=== PATIENT | female | born 1965 | race Two or more races ===

== ENCOUNTER 2017-06-12 02:25 | Inpatient (IN) | payer OTHER ==
[~2017-06-12] VITALS: Ht 160 cm; Wt 107.0 kg
[2017-06-12] MEDS ORDERED: HYDROmorphone 1 MG/ML, 1ML ONE ×2 (02:41→05:40)
[2017-06-12] MEDS ORDERED: ONDANSETRON 2MG/ML, 2ML ONE ×3 (02:41→14:10)
[2017-06-12 02:46] LABS: HEMATOCRIT 48.5 % (34.6-47.8); HEMOGLOBIN 16.4 g/dL (11.7-16.4); WHITE BLOOD COUNT 12.1 x10^3/uL (3.4-10)
[2017-06-12 02:58] LABS: ASPARTATE AMINO TRANSFERASE 52 U/L (15-37); BLOOD UREA NITROGEN 11 mg/dL (7-18)
[2017-06-12] MEDS ORDERED: HYDROmorphone 1 MG/ML, 1ML IV ONE ×2 (03:00→05:30)
[2017-06-12] MEDS ORDERED: SODIUM CHLORIDE FLUSH 10ML SYR IVF ONE (03:00)
[2017-06-12] MEDS ORDERED: ONDANSETRON 2MG/ML, 2ML IVPush ONE (03:00)
[2017-06-12 03:03] LABS: IS PT STATUS REG ER OR PRE ER? YES
[2017-06-12] MEDS ORDERED: SODIUM CHLORIDE 0.9%, 500ML IVBOLUS ONE ×2 (03:30→04:00)
[2017-06-12] MEDS ORDERED: SODIUM CHLORIDE 0.9% 1,000ML IVBOLUS ONE ×2 (05:00→05:30)
[2017-06-12] MEDS ORDERED: CEFTRIAXONE PMX 1GM/50ML 50 ML ONE (05:08)
[2017-06-12] MEDS ORDERED: METRONIDAZOLE PMX 500MG/100ML 100 ML ONE (05:09)
[2017-06-12] MEDS ORDERED: OMNIPAQUE 350 MG/ML, 100ML BOTTLE ONE (05:15)
[2017-06-12] MEDS ORDERED: CEFTRIAXONE PMX 1GM/50ML 50 ML IV ONE (05:30)
[2017-06-12] MEDS ORDERED: INSULIN REGULAR 100 UNITS/ML, 3ML VIAL SQ-INSULIN ONE (05:30)
[2017-06-12] MEDS ORDERED: METRONIDAZOLE PMX 500MG/100ML 100 ML IV ONE (05:30)
[2017-06-12 06:21] VITALS: BP 117/118
[2017-06-12] MEDS: HYDROmorphone 2 MG/ML, 1ML IVPush PRN (07:57)
[2017-06-12] MEDS ORDERED: ONDANSETRON 2MG/ML, 2ML IVPush PRN (08:00)
[2017-06-12] MEDS: SODIUM CHLORIDE 0.9% 1,000 ML IV SCH ×3 (08:06→21:46)
[2017-06-12] MEDS: INSULIN REGULAR 100 UNITS/ML, 3ML VIAL SQ-INSULIN SCH ×3 (09:50→22:13)
[2017-06-12] MEDS ORDERED: morphine SULFATE 10 MG/ML, 1ML IV PRN (10:30)
[2017-06-12] MEDS: INSULIN DETEMIR 100 UNITS/ML, PEN SQ-INSULIN SCH (11:16)
[2017-06-12 12:29] LABS: DAU SCREEN DISCLAIMER
[2017-06-12 12:49] LABS: HCG UR OBC PASS
[2017-06-12] MEDS ORDERED: KETAMINE 10 MG/ML, 20ML ONE (13:47)
[2017-06-12] MEDS ORDERED: MIDAZOLAM 1 MG/ML, 2ML ONE (13:47)
[2017-06-12] MEDS ORDERED: FENTANYL PF 100 MCG/2ML ONE ×2 (13:47)
[2017-06-12] MEDS ORDERED: EPINEPHRINE 1 MG/ML, 1ML ONE (13:54)
[2017-06-12] MEDS ORDERED: BUPIVACAINE/PF 0.5% ONE (13:54)
[2017-06-12] MEDS ORDERED: NEOSTIGMINE 1 MG/ML, 10ML ONE (14:10)
[2017-06-12] MEDS ORDERED: SUCCINYLCHOLINE 20 MG/ML, 10ML ONE (14:10)
[2017-06-12] MEDS ORDERED: ROCURONIUM 10 MG/ML ONE (14:10)
[2017-06-12] MEDS ORDERED: GLYCOPYRROLATE 0.2MG/1ML, 5ML ONE (14:10)
[2017-06-12] MEDS ORDERED: PROPOFOL 10 MG/ML, 20ML ONE (14:10)
[2017-06-12] MEDS ORDERED: BUPIVACAINE/PF-EPI 0.5% 1:200K INFIL ONE (14:37)
[2017-06-12] MEDS ORDERED: OXYcodone 5 MG/5 ML ORAL.SOL UDC PO PRN (15:00)
[2017-06-12] MEDS ORDERED: MEPERIDINE/PF 25MG/0.5ML IVPush PRN (15:00)
[2017-06-12] MEDS ORDERED: FENTANYL PF 100 MCG/2ML IV PRN (15:00)
[2017-06-12] MEDS ORDERED: hydrALAzine 20 MG/ML, 1ML IV PRN (15:00)
[2017-06-12] MEDS ORDERED: LABETALOL 5MG/ML, 20ML IV PRN (15:00)
[2017-06-12] MEDS ORDERED: PROMETHAZINE 25 MG/ML, 1ML IV PRN (15:00)
[2017-06-12] MEDS ORDERED: HYDROmorphone 1 MG/ML, 1ML IV PRN (15:00)
[2017-06-12] MEDS ORDERED: NEOSPORIN OINT, 15GM ONE (15:14)
[2017-06-12] MEDS: METRONIDAZOLE PMX 500MG/100ML 100 ML IV SCH (16:57)
[2017-06-12 16:59] VITALS: BP 113/79
[2017-06-12] MEDS: OXYcodone/APAP 5/325MG TABLET PO PRN (19:19)
[2017-06-12] MEDS: LEVOFLOXACIN/PMX 750MG/150ML 150 ML IV SCH (19:52)
[2017-06-12 20:42] VITALS: BP 129/83
[2017-06-13 00:08] VITALS: BP 102/76
[2017-06-13] MEDS: METRONIDAZOLE PMX 500MG/100ML 100 ML IV SCH ×3 (00:41→16:55)
[2017-06-13] MEDS: OXYcodone/APAP 5/325MG TABLET PO PRN ×5 (01:38→23:35)
[2017-06-13 03:25] VITALS: BP 119/78
[2017-06-13] MEDS: SODIUM CHLORIDE 0.9% 1,000 ML IV SCH ×3 (04:55→18:16)
[2017-06-13] MEDS: CEFTRIAXONE PMX 2GM/50ML 50 ML IV SCH (05:16)
[2017-06-13 06:02] LABS: HEMATOCRIT 34.8 % (34.6-47.8); HEMOGLOBIN 11.8 g/dL (11.7-16.4); WHITE BLOOD COUNT 16.1 x10^3/uL (3.4-10)
[2017-06-13 06:06] LABS: BLOOD UREA NITROGEN 26 mg/dL (7-18)
[2017-06-13 06:11] LABS: ASPARTATE AMINO TRANSFERASE 163 U/L (15-37)
[2017-06-13 06:44] LABS: DIFF TOTAL CELLS COUNTED 100 CELL DIFF
[2017-06-13 06:45] LABS: VERIFY COUNTS? YES
[2017-06-13 07:00] VITALS: BP 122/81
[2017-06-13] MEDS: INSULIN DETEMIR 100 UNITS/ML, PEN SQ-INSULIN SCH (07:40)
[2017-06-13] MEDS: INSULIN REGULAR 100 UNITS/ML, 3ML VIAL SQ-INSULIN SCH ×4 (07:40→20:48)
[2017-06-13 15:55] VITALS: BP 123/85
[2017-06-13] MEDS ORDERED: POTASSIUM CHLORIDE 40 MEQ in SODIUM CHLORIDE 0.9% 500 ML IV ONE (19:00)
[2017-06-13] MEDS: LEVOFLOXACIN/PMX 750MG/150ML 150 ML IV SCH (19:43)
[2017-06-13 20:17] VITALS: BP 124/83
[2017-06-14] MEDS: SODIUM CHLORIDE 0.9% 1,000 ML IV SCH ×3 (00:42→15:12)
[2017-06-14] MEDS: METRONIDAZOLE PMX 500MG/100ML 100 ML IV SCH ×3 (00:43→16:57)
[2017-06-14 01:47] VITALS: BP 153/97
[2017-06-14] MEDS: OXYcodone/APAP 5/325MG TABLET PO PRN ×4 (03:46→19:27)
[2017-06-14] MEDS: CEFTRIAXONE PMX 2GM/50ML 50 ML IV SCH (04:51)
[2017-06-14 05:51] LABS: HEMATOCRIT 32.5 % (34.6-47.8); HEMOGLOBIN 11.2 g/dL (11.7-16.4)
[2017-06-14 06:07] LABS: BLOOD UREA NITROGEN 15 mg/dL (7-18)
[2017-06-14] MEDS: INSULIN REGULAR 100 UNITS/ML, 3ML VIAL SQ-INSULIN SCH ×4 (08:13→21:49)
[2017-06-14 08:29] VITALS: BP 149/90
[2017-06-14] MEDS: INSULIN DETEMIR 100 UNITS/ML, PEN SQ-INSULIN SCH (10:34)
[2017-06-14 13:53] VITALS: BP 156/94
[2017-06-14] MEDS ORDERED: MAGNESIUM SULFATE PMX 4GM/100M 100 ML IV ONE (18:30)
[2017-06-14] MEDS ORDERED: POTASSIUM PHOSPHATE 44 MEQ in SODIUM CHLORIDE 0.9% 500 ML IV ONE (18:30)
[2017-06-14] MEDS ORDERED: POTASSIUM CHLORIDE 20 MEQ TAB.ER.PRT PO ONE (18:30)
[2017-06-14] MEDS: LEVOFLOXACIN/PMX 750MG/150ML 150 ML IV SCH (19:16)
[2017-06-14 20:05] LABS: BLOOD UREA NITROGEN 10 mg/dL (7-18)
[2017-06-14 21:02] VITALS: BP 155/98
[2017-06-15] MEDS: DOCUSATE 100 MG CAPSULE PO PRN (00:17)
[2017-06-15] MEDS: METRONIDAZOLE PMX 500MG/100ML 100 ML IV SCH ×3 (00:17→16:35)
[2017-06-15] MEDS ORDERED: MAGNESIUM HYDROXIDE 8%, 30ML UDC PO PRN (00:30)
[2017-06-15] MEDS ORDERED: BISACODYL 10 MG SUPP PR PRN (00:30)
[2017-06-15] MEDS: OXYcodone/APAP 5/325MG TABLET PO PRN ×5 (01:47→23:02)
[2017-06-15 03:52] VITALS: BP 154/93
[2017-06-15] MEDS: CEFTRIAXONE PMX 2GM/50ML 50 ML IV SCH (05:12)
[2017-06-15 05:57] LABS: HEMATOCRIT 33.7 % (34.6-47.8); HEMOGLOBIN 11.5 g/dL (11.7-16.4); WHITE BLOOD COUNT 10.1 x10^3/uL (3.4-10)
[2017-06-15] MEDS: INSULIN REGULAR 100 UNITS/ML, 3ML VIAL SQ-INSULIN SCH ×4 (07:26→21:31)
[2017-06-15] MEDS: INSULIN DETEMIR 100 UNITS/ML, PEN SQ-INSULIN SCH (08:17)
[2017-06-15] MEDS: SODIUM CHLORIDE 0.9% 1,000 ML IV SCH ×3 (08:17→21:31)
[2017-06-15 08:28] VITALS: BP 185/101
[2017-06-15 09:29] VITALS: BP 173/116
[2017-06-15] MEDS: hydrALAzine 20 MG/ML, 1ML IV PRN (09:46)
[2017-06-15 13:15] VITALS: BP 155/93
[2017-06-15] MEDS ORDERED: FUROSEMIDE 40 MG/4 ML IV ONE (14:00)
[2017-06-15] MEDS ORDERED: POTASSIUM CHLORIDE 20 MEQ TAB.ER.PRT PO ONE (14:00)
[2017-06-15 18:29] VITALS: BP 149/86
[2017-06-15] MEDS: LEVOFLOXACIN/PMX 750MG/150ML 150 ML IV SCH (19:24)
[2017-06-16] MEDS: METRONIDAZOLE PMX 500MG/100ML 100 ML IV SCH ×3 (00:44→16:43)
[2017-06-16] MEDS: SODIUM CHLORIDE 0.9% 1,000 ML IV SCH (01:55)
[2017-06-16 02:49] VITALS: BP_SYST 158; BP_SYST 168; BP_DIAS 92
[2017-06-16] MEDS: hydrALAzine 20 MG/ML, 1ML IV PRN ×4 (03:03→20:22)
[2017-06-16] MEDS: OXYcodone/APAP 5/325MG TABLET PO PRN ×5 (03:03→20:34)
[2017-06-16 05:11] LABS: BLOOD UREA NITROGEN 5 mg/dL (7-18)
[2017-06-16 05:26] VITALS: BP 157/92
[2017-06-16] MEDS: CEFTRIAXONE PMX 2GM/50ML 50 ML IV SCH (05:28)
[2017-06-16] MEDS: INSULIN REGULAR 100 UNITS/ML, 3ML VIAL SQ-INSULIN SCH ×4 (06:50→20:38)
[2017-06-16 06:57] VITALS: BP 168/105
[2017-06-16 08:23] VITALS: BP 165/97
[2017-06-16] MEDS: INSULIN DETEMIR 100 UNITS/ML, PEN SQ-INSULIN SCH (08:24)
[2017-06-16 13:41] VITALS: BP 164/105
[2017-06-16] MEDS: POTASSIUM CHLORIDE 20 MEQ TAB.ER.PRT PO SCH (16:43)
[2017-06-16 18:51] VITALS: BP 167/97
[2017-06-16] MEDS: LEVOFLOXACIN/PMX 750MG/150ML 150 ML IV SCH (20:23)
[2017-06-17] MEDS: OXYcodone/APAP 5/325MG TABLET PO PRN ×5 (00:13→20:57)
[2017-06-17] MEDS: METRONIDAZOLE PMX 500MG/100ML 100 ML IV SCH ×3 (00:14→16:25)
[2017-06-17 00:25] VITALS: BP 157/85
[2017-06-17] MEDS: CEFTRIAXONE PMX 2GM/50ML 50 ML IV SCH (05:05)
[2017-06-17] MEDS: INSULIN REGULAR 100 UNITS/ML, 3ML VIAL SQ-INSULIN SCH ×4 (06:29→21:11)
[2017-06-17 07:55] VITALS: BP 197/112
[2017-06-17] MEDS: hydrALAzine 20 MG/ML, 1ML IV PRN (07:55)
[2017-06-17] MEDS: POTASSIUM CHLORIDE 20 MEQ TAB.ER.PRT PO SCH (07:56)
[2017-06-17] MEDS: INSULIN DETEMIR 100 UNITS/ML, PEN SQ-INSULIN SCH (07:56)
[2017-06-17] MEDS: HYDROmorphone 2 MG/ML, 1ML IVPush PRN (12:40)
[2017-06-17 13:19] VITALS: BP 175/104
[2017-06-17] MEDS: METOPROLOL TARTRATE 50 MG TABLET PO SCH (16:25)
[2017-06-17 18:34] VITALS: BP 157/95
[2017-06-17] MEDS: LISINOPRIL 20 MG TABLET PO SCH (20:55)
[2017-06-17] MEDS: DOCUSATE 100 MG CAPSULE PO PRN (21:10)
[2017-06-18 01:09] VITALS: BP 154/96
[2017-06-18] MEDS: OXYcodone/APAP 5/325MG TABLET PO PRN ×6 (01:09→22:18)
[2017-06-18] MEDS: METOPROLOL TARTRATE 50 MG TABLET PO SCH ×2 (05:06→17:25)
[2017-06-18] MEDS: CEFTRIAXONE PMX 2GM/50ML 50 ML IV SCH (05:06)
[2017-06-18 05:47] LABS: BLOOD UREA NITROGEN 6 mg/dL (7-18)
[2017-06-18 07:54] VITALS: BP 161/98
[2017-06-18] MEDS: LISINOPRIL 20 MG TABLET PO SCH ×2 (08:26→22:18)
[2017-06-18] MEDS: INSULIN REGULAR 100 UNITS/ML, 3ML VIAL SQ-INSULIN SCH ×4 (08:27→22:19)
[2017-06-18] MEDS: INSULIN DETEMIR 100 UNITS/ML, PEN SQ-INSULIN SCH (08:27)
[2017-06-18 15:20] VITALS: BP_SYST 174; BP_SYST 186; BP_DIAS 106
[2017-06-18 20:02] VITALS: BP 178/101
[2017-06-19 01:52] VITALS: BP 176/99
[2017-06-19] MEDS: OXYcodone/APAP 5/325MG TABLET PO PRN ×5 (02:36→20:27)
[2017-06-19] MEDS: CEFTRIAXONE PMX 2GM/50ML 50 ML IV SCH (05:17)
[2017-06-19] MEDS: METOPROLOL TARTRATE 50 MG TABLET PO SCH ×2 (06:26→16:43)
[2017-06-19 08:00] VITALS: BP_SYST 187; BP_SYST 192; BP_DIAS 101; BP_DIAS 99
[2017-06-19] MEDS: LISINOPRIL 20 MG TABLET PO SCH ×2 (08:15→20:27)
[2017-06-19] MEDS: INSULIN DETEMIR 100 UNITS/ML, PEN SQ-INSULIN SCH (08:16)
[2017-06-19] MEDS: INSULIN REGULAR 100 UNITS/ML, 3ML VIAL SQ-INSULIN SCH ×4 (08:16→20:26)
[2017-06-19 15:53] VITALS: BP 166/116
[2017-06-19 18:20] VITALS: BP 150/96
[2017-06-20] MEDS: OXYcodone/APAP 5/325MG TABLET PO PRN ×5 (00:27→21:06)
[2017-06-20 04:15] VITALS: BP 156/90
[2017-06-20] MEDS: CEFTRIAXONE PMX 2GM/50ML 50 ML IV SCH (04:50)
[2017-06-20] MEDS: METOPROLOL TARTRATE 50 MG TABLET PO SCH ×2 (06:24→17:03)
[2017-06-20 08:06] VITALS: BP 173/113
[2017-06-20] MEDS: INSULIN REGULAR 100 UNITS/ML, 3ML VIAL SQ-INSULIN SCH ×4 (08:37→21:07)
[2017-06-20] MEDS: INSULIN DETEMIR 100 UNITS/ML, PEN SQ-INSULIN SCH ×2 (08:38→21:12)
[2017-06-20] MEDS: LISINOPRIL 20 MG TABLET PO SCH ×2 (08:38→21:06)
[2017-06-20] MEDS: AMLODIPINE 5 MG TABLET PO SCH ×2 (10:22→21:05)
[2017-06-20 14:00] VITALS: BP 153/95
[2017-06-20 20:17] VITALS: BP 171/98
[2017-06-21] MEDS: OXYcodone/APAP 5/325MG TABLET PO PRN ×4 (01:29→21:38)
[2017-06-21 05:01] VITALS: BP 172/82
[2017-06-21] MEDS: CEFTRIAXONE PMX 2GM/50ML 50 ML IV SCH (05:20)
[2017-06-21] MEDS: METOPROLOL TARTRATE 50 MG TABLET PO SCH ×2 (05:20→17:14)
[2017-06-21] MEDS: INSULIN REGULAR 100 UNITS/ML, 3ML VIAL SQ-INSULIN SCH ×4 (07:00→21:34)
[2017-06-21 08:02] VITALS: BP 161/97
[2017-06-21] MEDS: LISINOPRIL 20 MG TABLET PO SCH ×2 (08:04→21:35)
[2017-06-21] MEDS: INSULIN DETEMIR 100 UNITS/ML, PEN SQ-INSULIN SCH ×2 (08:04→21:35)
[2017-06-21] MEDS: AMLODIPINE 5 MG TABLET PO SCH ×2 (08:04→21:35)
[2017-06-21 13:50] VITALS: BP 173/94
[2017-06-21 18:39] VITALS: BP 153/97
[2017-06-22 01:14] VITALS: BP 136/84
[2017-06-22] MEDS: CEFTRIAXONE PMX 2GM/50ML 50 ML IV SCH (05:36)
[2017-06-22] MEDS: METOPROLOL TARTRATE 50 MG TABLET PO SCH ×2 (06:27→18:02)
[2017-06-22 06:45] VITALS: BP 156/90
[2017-06-22] MEDS: INSULIN REGULAR 100 UNITS/ML, 3ML VIAL SQ-INSULIN SCH ×4 (07:00→22:34)
[2017-06-22] MEDS: HYDROCHLOROTHIAZIDE 25 MG TABLET PO SCH (08:06)
[2017-06-22] MEDS: POTASSIUM CHLORIDE 20 MEQ PACKET PO SCH (08:06)
[2017-06-22] MEDS: OXYcodone/APAP 5/325MG TABLET PO PRN ×3 (08:06→22:29)
[2017-06-22] MEDS: LISINOPRIL 20 MG TABLET PO SCH ×2 (08:07→22:02)
[2017-06-22] MEDS: AMLODIPINE 5 MG TABLET PO SCH ×2 (08:07→22:01)
[2017-06-22] MEDS: INSULIN DETEMIR 100 UNITS/ML, PEN SQ-INSULIN SCH ×2 (08:08→22:33)
[2017-06-22 13:10] VITALS: BP 149/91
[2017-06-22 18:41] VITALS: BP 150/89
[2017-06-23 02:57] VITALS: BP 164/83
[2017-06-23] MEDS: CEFTRIAXONE PMX 2GM/50ML 50 ML IV SCH (06:10)
[2017-06-23] MEDS: METOPROLOL TARTRATE 50 MG TABLET PO SCH ×2 (06:10→18:13)
[2017-06-23 06:55] VITALS: BP 155/97
[2017-06-23] MEDS: INSULIN REGULAR 100 UNITS/ML, 3ML VIAL SQ-INSULIN SCH ×4 (07:00→22:05)
[2017-06-23] MEDS: OXYcodone/APAP 5/325MG TABLET PO PRN ×3 (07:26→22:06)
[2017-06-23] MEDS: LISINOPRIL 20 MG TABLET PO SCH ×2 (09:56→22:04)
[2017-06-23] MEDS: AMLODIPINE 5 MG TABLET PO SCH ×2 (09:56→22:04)
[2017-06-23] MEDS: POTASSIUM CHLORIDE 20 MEQ PACKET PO SCH (09:57)
[2017-06-23] MEDS: HYDROCHLOROTHIAZIDE 25 MG TABLET PO SCH (09:57)
[2017-06-23] MEDS: INSULIN DETEMIR 100 UNITS/ML, PEN SQ-INSULIN SCH ×2 (09:58→22:06)
[2017-06-23 12:35] VITALS: BP 137/82
[2017-06-23 19:38] VITALS: BP 157/99
[2017-06-24 00:22] VITALS: BP 160/96
[2017-06-24 06:00] LABS: HEMATOCRIT 35.2 % (34.6-47.8); HEMOGLOBIN 11.9 g/dL (11.7-16.4); WHITE BLOOD COUNT 8.6 x10^3/uL (3.4-10)
[2017-06-24] MEDS: CEFTRIAXONE PMX 2GM/50ML 50 ML IV SCH (06:09)
[2017-06-24] MEDS: METOPROLOL TARTRATE 50 MG TABLET PO SCH ×2 (06:09→17:57)
[2017-06-24] MEDS: OXYcodone/APAP 5/325MG TABLET PO PRN ×4 (06:17→22:14)
[2017-06-24 06:39] LABS: BLOOD UREA NITROGEN 13 mg/dL (7-18)
[2017-06-24 07:17] VITALS: BP 158/97
[2017-06-24] MEDS: INSULIN REGULAR 100 UNITS/ML, 3ML VIAL SQ-INSULIN SCH ×4 (07:30→22:13)
[2017-06-24] MEDS: LISINOPRIL 20 MG TABLET PO SCH ×2 (09:02→21:27)
[2017-06-24] MEDS: HYDROCHLOROTHIAZIDE 25 MG TABLET PO SCH (09:02)
[2017-06-24] MEDS: AMLODIPINE 5 MG TABLET PO SCH ×2 (09:02→21:27)
[2017-06-24] MEDS: POTASSIUM CHLORIDE 20 MEQ PACKET PO SCH (09:03)
[2017-06-24] MEDS: INSULIN DETEMIR 100 UNITS/ML, PEN SQ-INSULIN SCH ×2 (09:04→22:14)
[2017-06-24 13:47] VITALS: BP 138/87
[2017-06-24 16:20] VITALS: BP 142/92
[2017-06-24 21:09] VITALS: BP 128/80
[2017-06-25 02:18] VITALS: BP 154/83
[2017-06-25] MEDS: OXYcodone/APAP 5/325MG TABLET PO PRN ×4 (02:38→21:38)
[2017-06-25 05:59] LABS: HEMATOCRIT 38.4 % (34.6-47.8); HEMOGLOBIN 12.9 g/dL (11.7-16.4); WHITE BLOOD COUNT 7.9 x10^3/uL (3.4-10)
[2017-06-25 06:19] LABS: ASPARTATE AMINO TRANSFERASE 27 U/L (15-37); BLOOD UREA NITROGEN 17 mg/dL (7-18)
[2017-06-25] MEDS: CEFTRIAXONE PMX 2GM/50ML 50 ML IV SCH (06:52)
[2017-06-25 06:59] VITALS: BP 125/78
[2017-06-25] MEDS: METOPROLOL TARTRATE 50 MG TABLET PO SCH ×2 (06:59→17:21)
[2017-06-25 07:41] VITALS: BP 111/72
[2017-06-25] MEDS: POTASSIUM CHLORIDE 20 MEQ PACKET PO SCH (07:59)
[2017-06-25] MEDS: LISINOPRIL 20 MG TABLET PO SCH ×2 (07:59→21:38)
[2017-06-25] MEDS: AMLODIPINE 5 MG TABLET PO SCH ×2 (07:59→21:37)
[2017-06-25] MEDS: HYDROCHLOROTHIAZIDE 25 MG TABLET PO SCH (08:01)
[2017-06-25] MEDS: INSULIN REGULAR 100 UNITS/ML, 3ML VIAL SQ-INSULIN SCH ×4 (08:01→21:45)
[2017-06-25] MEDS: INSULIN DETEMIR 100 UNITS/ML, PEN SQ-INSULIN SCH ×2 (08:02→21:45)
[2017-06-25 13:21] VITALS: BP 135/79
[2017-06-25 19:02] VITALS: BP 127/78
[2017-06-26 03:23] VITALS: BP 143/88
[2017-06-26] MEDS: OXYcodone/APAP 5/325MG TABLET PO PRN ×4 (04:12→21:04)
[2017-06-26 05:33] LABS: HEMATOCRIT 35.5 % (34.6-47.8); HEMOGLOBIN 11.9 g/dL (11.7-16.4); WHITE BLOOD COUNT 6.6 x10^3/uL (3.4-10)
[2017-06-26 05:41] LABS: ASPARTATE AMINO TRANSFERASE 24 U/L (15-37); BLOOD UREA NITROGEN 17 mg/dL (7-18)
[2017-06-26] MEDS: CEFTRIAXONE PMX 2GM/50ML 50 ML IV SCH (06:10)
[2017-06-26] MEDS: METOPROLOL TARTRATE 50 MG TABLET PO SCH ×2 (06:10→16:34)
[2017-06-26 07:35] VITALS: BP 138/80
[2017-06-26] MEDS: POTASSIUM CHLORIDE 20 MEQ PACKET PO SCH (07:37)
[2017-06-26] MEDS: INSULIN REGULAR 100 UNITS/ML, 3ML VIAL SQ-INSULIN SCH ×4 (07:37→21:08)
[2017-06-26] MEDS: INSULIN DETEMIR 100 UNITS/ML, PEN SQ-INSULIN SCH ×2 (07:38→21:09)
[2017-06-26] MEDS: LISINOPRIL 20 MG TABLET PO SCH ×2 (07:38→21:05)
[2017-06-26] MEDS: HYDROCHLOROTHIAZIDE 25 MG TABLET PO SCH (07:38)
[2017-06-26] MEDS: AMLODIPINE 5 MG TABLET PO SCH ×2 (07:38→21:05)
[2017-06-26 07:51] VITALS: BP 121/79
[2017-06-26 13:29] VITALS: BP 116/65
[2017-06-26 16:33] VITALS: BP 142/83
[2017-06-26 20:46] VITALS: BP 110/73
[2017-06-27 02:55] VITALS: BP 131/82
[2017-06-27 05:21] LABS: HEMATOCRIT 36.7 % (34.6-47.8); HEMOGLOBIN 12.3 g/dL (11.7-16.4); WHITE BLOOD COUNT 6.8 x10^3/uL (3.4-10)
[2017-06-27 05:32] LABS: ASPARTATE AMINO TRANSFERASE 14 U/L (15-37); BLOOD UREA NITROGEN 16 mg/dL (7-18)
[2017-06-27] MEDS: OXYcodone/APAP 5/325MG TABLET PO PRN ×3 (05:46→21:50)
[2017-06-27] MEDS: METOPROLOL TARTRATE 50 MG TABLET PO SCH ×2 (05:46→16:51)
[2017-06-27] MEDS: CEFTRIAXONE PMX 2GM/50ML 50 ML IV SCH (05:46)
[2017-06-27 07:48] VITALS: BP 122/82
[2017-06-27] MEDS: INSULIN REGULAR 100 UNITS/ML, 3ML VIAL SQ-INSULIN SCH ×4 (08:50→20:43)
[2017-06-27] MEDS: POTASSIUM CHLORIDE 20 MEQ PACKET PO SCH (08:50)
[2017-06-27] MEDS: HYDROCHLOROTHIAZIDE 25 MG TABLET PO SCH (08:51)
[2017-06-27] MEDS: AMLODIPINE 5 MG TABLET PO SCH ×2 (08:51→20:41)
[2017-06-27] MEDS: LISINOPRIL 20 MG TABLET PO SCH ×2 (08:52→20:41)
[2017-06-27] MEDS: INSULIN DETEMIR 100 UNITS/ML, PEN SQ-INSULIN SCH ×2 (08:53→20:42)
[2017-06-27 13:21] VITALS: BP 113/69
[2017-06-27 17:03] VITALS: BP 112/78
[2017-06-27 20:00] VITALS: BP 141/85
[2017-06-28 02:00] VITALS: BP 137/77
[2017-06-28 05:59] LABS: HEMATOCRIT 37.5 % (34.6-47.8); HEMOGLOBIN 12.5 g/dL (11.7-16.4); WHITE BLOOD COUNT 6.4 x10^3/uL (3.4-10)
[2017-06-28] MEDS: OXYcodone/APAP 5/325MG TABLET PO PRN (06:09)
[2017-06-28] MEDS: CEFTRIAXONE PMX 2GM/50ML 50 ML IV SCH (06:09)
[2017-06-28] MEDS ORDERED: INSU100I28 SQ-INSULIN (06:11)
[2017-06-28] MEDS ORDERED: LISI-170 PO (06:11)
[2017-06-28] MEDS ORDERED: METO50TA82 PO (06:11)
[2017-06-28] MEDS ORDERED: AMLO5TAB2 PO (06:11)
[2017-06-28] MEDS ORDERED: HYDR-3343 PO (06:11)
[2017-06-28] MEDS ORDERED: HYDR25TA6 PO (06:11)
[2017-06-28] MEDS: METOPROLOL TARTRATE 50 MG TABLET PO SCH (06:32)
[2017-06-28 06:36] LABS: BLOOD UREA NITROGEN 13 mg/dL (7-18)
[2017-06-28 06:37] LABS: ASPARTATE AMINO TRANSFERASE 16 U/L (15-37)
[2017-06-28 07:02] VITALS: BP 149/90
[2017-06-28] MEDS: INSULIN REGULAR 100 UNITS/ML, 3ML VIAL SQ-INSULIN SCH (07:59)
[2017-06-28] MEDS: LISINOPRIL 20 MG TABLET PO SCH (08:00)
[2017-06-28] MEDS: POTASSIUM CHLORIDE 20 MEQ PACKET PO SCH (08:00)
[2017-06-28] MEDS: INSULIN DETEMIR 100 UNITS/ML, PEN SQ-INSULIN SCH (08:00)
[2017-06-28] MEDS: AMLODIPINE 5 MG TABLET PO SCH (08:00)
[2017-06-28] MEDS: HYDROCHLOROTHIAZIDE 25 MG TABLET PO SCH (08:00)
[2017-06-28] MEDS ORDERED: METF500T PO (08:01)
[2017-06-28] MEDS ORDERED: PNEUMOCOCCAL 23 VACCINE IM-VACC ONE (09:30)
[2017-06-28] MEDS ORDERED: INSU100C5 SQ-INSULIN (10:52)
== END 2017-06-28 11:10 | disposition home or self-care (01) | DRG 853 ==
LOC: EDBD 02:25 → ED 03:40 → EDIP 05:22 → 4NOR 06:19 → 4EST 06-27 17:01 → DCLOUNGE 06-28 10:42
PROVIDERS: ADMIT Internal Medicine; ATTEND Internal Medicine
PROC: 0FT44ZZ Resection of Gallbladder, Percutaneous Endoscopic Approach (ICD-10-PCS; principal; 2017-06-12 14:00)
DX: A41.9 Sepsis, unspecified organism (principal); N17.0 Acute kidney failure with tubular necrosis; E11.00 Type 2 diabetes mellitus with hyperosmolarity without nonketotic hyperglycemic-hyperosmolar coma (NKHHC); E87.2 Acidosis; E43 Unspecified severe protein-calorie malnutrition; N39.0 Urinary tract infection, site not specified; K80.00 Calculus of gallbladder with acute cholecystitis without obstruction; Z68.41 Body mass index [BMI] 40.0-44.9, adult; R65.20 Severe sepsis without septic shock; D75.89 Other specified diseases of blood and blood-forming organs; E11.65 Type 2 diabetes mellitus with hyperglycemia; E66.01 Morbid (severe) obesity due to excess calories; E83.39 Other disorders of phosphorus metabolism; E83.42 Hypomagnesemia; E87.6 Hypokalemia; I10 Essential (primary) hypertension; F15.10 Other stimulant abuse, uncomplicated; K76.0 Fatty (change of) liver, not elsewhere classified; D21.9 Benign neoplasm of connective and other soft tissue, unspecified; Z79.84 Long term (current) use of oral hypoglycemic drugs; Z79.899 Other long term (current) drug therapy; Z82.49 Family history of ischemic heart disease and other diseases of the circulatory system; Z91.19 Patient's noncompliance with other medical treatment and regimen
CPT/HCPCS: 36415; 71010; 74174; 80047; 80048; 80053; 80307; 81001; 81025; 82010; 82800; 82962; 83036; 83605; 83690; 83735; 83880; 84100; 84439; 84443; 84484; 85025; 85610; 85730; 87040; 87077; 87086; 87186; 88304; 90732; 93005; 93306; 93975; 96361; 96365; 96372; 96375; 96376; C1729; J0171; J0696; J1170; J1815; J1940; J1956; J2250; J2405; J2704; J2710; J3010; J3480; J3490; Q9967; G0479; J0330; J0360; J3475; J7030; J7040

== ENCOUNTER 2020-11-05 22:44 | Emergency (ER) | payer BC ==
[~2020-11-05] VITALS: Ht 160 cm; Wt 106.2 kg
[~2020-11-05 22:44] MED LIST: AMLO-150 PO; HYDR-3343 PO; HYDR25TA6 PO; INSU100C5 SQ-INSULIN; INSU100I28 SQ-INSULIN; LISI-170 PO; METF500T PO; METO50TA82 PO
[2020-11-05] MEDS ORDERED: GABA100C PO (22:59)
--- NOTE | 2020-11-05 22:59 | NUR ---
PT CAME INTO ED THIS EVENING FOR C/O TOOTH PAIN ON THE RIGHT UPPER SIDE. PT DENIES HAVING A REGULAR DENTIST, DENIES SWELLING OR VISION INVOLVEMENT. PAIN IS 9/10 AT HOME APPLIED SOME ORAL GEL. PT DENIES HOFF DESPITE INCREASED BP. PT RESTING ON JAQUAN HERNANDEZ, PLACED ON SPO2/BP MONITORING. WCTM
[2020-11-05] MEDS ORDERED: LABETALOL 5MG/ML, 20ML ONE (23:20)
[2020-11-05 23:25] LABS: BASOPHILS % (AUTO) 0 % (0-1); EOSINOPHILS % (AUTO) 1 % (1-7); LYMPHOCYTES % (AUTO) 12 % (22-44); MEAN CORPUSCULAR HEMOGLOBIN 28.7 pg (27.0-34.8); MEAN CORPUSCULAR HGB CONC 34.2 g/dL (32.4-35.8); MEAN PLATELET VOLUME 8.5 fL (7.4-10.4); MONOCYTES % (AUTO) 6 % (2-9); NEUTROPHILS % (AUTO) 81 % (42-75); PLATELET COUNT 280 x10^3/uL (130-400); RED BLOOD COUNT 4.99 x10^6/uL (3.82-5.3); RED CELL DISTRIBUTION WIDTH 13.3 % (9.6-15.2)
[2020-11-05 23:29] LABS: MD NO
[2020-11-05] MEDS ORDERED: LABETALOL 5MG/ML, 20ML IVPush ONE (23:30)
[2020-11-05] MEDS ORDERED: SODIUM CHLORIDE 0.9% 1,000ML IVBOLUS ONE (23:30)
[2020-11-05] MEDS ORDERED: SODIUM CHLORIDE FLUSH 10ML SYR IVF ONE (23:30)
[2020-11-05 23:36] LABS: ALBUMIN 3.2 g/dL (3.4-5.0); ANION GAP 6 mmol/L (5-15); CALCIUM 8.7 mg/dL (8.5-10.1); CHLORIDE 104 mmol/L (98-107); CREATININE 0.95 mg/dL (0.55-1.02)
--- NOTE | 2020-11-06 00:17 | NUR ---
PT AMBULATED TO RESTROOM WITH A SMOOTH AND STEADY GAIT, NAD, BACK TO [facility], BED IN [facility], RAILS ENGAGED, CALL LIGHT ON LAP. STATES TOOTH PAIN HAD DECREASED BUT IS NOW BACK AND WORSE. EPR AWARE, AWAITING ORDERS, WCTM.
[2020-11-06] MEDS ORDERED: KETOROLAC 30 MG/1 ML IVPush ONE (00:30)
[2020-11-06] MEDS ORDERED: hydrALAzine 20 MG/ML, 1ML IV ONE (00:30)
[2020-11-06] MEDS ORDERED: hydrALAzine 20 MG/ML, 1ML ONE (00:30)
[2020-11-06] MEDS ORDERED: INSULIN SINGLE DOSE, ER SQ-INSULIN ONE (00:30)
[2020-11-06] MEDS ORDERED: INSULIN SINGLE DOSE, ER ONE (00:31)
[2020-11-06] MEDS ORDERED: KETOROLAC 30 MG/1 ML ONE (00:31)
--- NOTE | 2020-11-06 00:55 | NUR ---
PT MEDICATED PER MAR, NAD, RESTING ON GURNEY, DENIES ADDITIONAL QUESTIONS OR NEEDS, SLIGHT DECREASE IN BP. BED IN LOWEST, CALL LIGHT ON LAP, WCTM.
--- NOTE | 2020-11-06 01:31 | NUR ---
Patient given discharge instructions and they have confirmed that they understand the instructions. Patient ambulatory with steady gait. NAD, DENIES ADDITIONAL QUESTIONS OR NEEDS, STATES SHE WILL FOLLOW UP WITH PCP FOR MEDS AND DENTAL FOR TOOTH. STATES PAIN IS SIGNIFICANTLY DECREASED, NO PERSONAL BELONGINGS LEFT IN ROOM AFTER DC.
[2020-11-06 01:32] VITALS: BP 177/98
== END 2020-11-06 01:34 | disposition home or self-care (01) ==
LOC: ED 11-06 01:10
DX: K08.89 Other specified disorders of teeth and supporting structures (principal); E11.65 Type 2 diabetes mellitus with hyperglycemia; I10 Essential (primary) hypertension; Z91.14 Patient's other noncompliance with medication regimen
CPT/HCPCS: 36415; 80048; 82040; 82962; 85025; 96361; 96372; 96374; 96375; 99285; J0360; J1815; J1885; J7030

== ENCOUNTER 2021-06-23 00:52 | Inpatient (IN) | payer BC, OTHER ==
[~2021-06-23] VITALS: Ht 160 cm; Wt 106.3 kg
[~2021-06-23 00:52] MED LIST changes: +GABA100C PO
[2021-06-23] MEDS ORDERED: LABETALOL 5MG/ML, 20ML ONE (01:26)
[2021-06-23] MEDS ORDERED: SODIUM CHLORIDE FLUSH 10ML SYR IVF ONE (01:30)
[2021-06-23] MEDS: LABETALOL 5MG/ML, 20ML IVPush PRN ×2 (01:31→12:06)
--- NOTE | 2021-06-23 01:38 | NUR ---
PT STATES MONDAY MORNING WHEN SHE WOKE UP, WAS HAVING TROUBLE WALKING RIGHT (PT AMBULATORY INTO [facility]) STATES SHE FEELS LIKE SHE IS DRAGGING HER R LEG. PT STATES SHE IS SLURRING HER WORDS, ONSET SAME TIME. PT DENIES HEADACHE,DIZZINESS. DENIES ANY CVA HX. LAST KNOWN WELL Monday. - SLURRED SPEECH NO OTHER NEURO DEFICITS.
[2021-06-23 01:57] LABS: BASOPHILS % (AUTO) 1 % (0-1); EOSINOPHILS % (AUTO) 1 % (1-7); LYMPHOCYTES % (AUTO) 13 % (22-44); MEAN CORPUSCULAR HEMOGLOBIN 29.1 pg (27.0-34.8); MEAN CORPUSCULAR HGB CONC 33.8 g/dL (32.4-35.8); MEAN PLATELET VOLUME 9.3 fL (7.4-10.4); MONOCYTES % (AUTO) 5 % (2-9); NEUTROPHILS % (AUTO) 81 % (42-75); PLATELET COUNT 311 x10^3/uL (130-400); RED BLOOD COUNT 5.62 x10^6/uL (3.82-5.3)
[2021-06-23 02:02] LABS: ANION GAP 8 mmol/L (5-15); CALCIUM 8.6 mg/dL (8.5-10.1); CHLORIDE 102 mmol/L (98-107)
[2021-06-23 02:02] LABS: INTERNATIONAL NORMALIZED RATIO 0.99 (0.93-1.1); PROTHROMBIN TIME 10.6 Seconds (9.6-11.5)
[2021-06-23 02:05] LABS: ALANINE AMINOTRANSFERASE 51 U/L (12-78); ALKALINE PHOSPHATASE 160 U/L (45-117); BILIRUBIN,TOTAL 0.3 mg/dL (0.2-1.0); CREATININE 1.15 mg/dL (0.55-1.02); TOTAL PROTEIN 7.9 g/dL (6.4-8.2)
--- NOTE | 2021-06-23 02:25 | NUR ---
pt states feels better in nad
[2021-06-23] MEDS ORDERED: INSULIN REGULAR 100 UNITS/ML, 3ML VIAL IVPush ONE (02:30)
[2021-06-23] MEDS ORDERED: DEXAMETHASONE 4 MG/ML, 1ML IVPush ONE (02:30)
[2021-06-23] MEDS ORDERED: LEVETIRACETAM 1,000 MG in SODIUM CHLORIDE 0.9% 100 ML IV ONE (02:30)
[2021-06-23] MEDS ORDERED: SODIUM CHLORIDE 0.9% 1,000 ML IV ONE (02:30)
[2021-06-23] MEDS ORDERED: DEXAMETHASONE 4 MG/ML, 5ML ONE (02:40)
[2021-06-23] MEDS ORDERED: INSULIN SINGLE DOSE, ER ONE (02:41)
[2021-06-23] MEDS ORDERED: DEXTROSE 50%, 50ML SYRINGE IVPush PRN (03:00)
[2021-06-23] MEDS ORDERED: INSULIN LISPRO 100 UNITS/ML, PEN SQ-INSULIN SCH (03:00)
[2021-06-23] MEDS ORDERED: ACETAMINOPHEN 325 MG TABLET PO PRN (03:00)
[2021-06-23] MEDS ORDERED: GLUCAGON 1 MG IM PRN (03:00)
[2021-06-23] MEDS ORDERED: LABETALOL 5MG/ML, 20ML IV PRN (03:00)
[2021-06-23] MEDS ORDERED: OXYcodone IR 5MG TABLET PO PRN (03:00)
[2021-06-23] MEDS ORDERED: ONDANSETRON 2MG/ML, 2ML IVPush PRN (03:00)
[2021-06-23] MEDS ORDERED: GUAIFENESIN/DM 200-20MG, 10ML UDC PO PRN (03:00)
[2021-06-23] MEDS ORDERED: POLYETHYLENE GLYCOL 17 GM PACKET PO PRN (03:00)
[2021-06-23] MEDS ORDERED: morphine SULFATE 10 MG/ML, 1ML IVPush PRN (03:00)
[2021-06-23] MEDS ORDERED: DIPHENHYDRAMINE 25 MG CAPSULE PO PRN (03:00)
[2021-06-23] MEDS ORDERED: DEXTROSE 4 GM TAB.CHEW PO PRN (03:00)
--- NOTE | 2021-06-23 03:18 | NUR ---
. .PT CCU ADMIT AWAITING BED D/T HEAD BLEED. MEDS GIVEN PER MAR PT IN NAD
--- NOTE | 2021-06-23 03:57 | NUR ---
Kate -daughter [phone]
--- NOTE | 2021-06-23 04:15 | NUR ---
pt moved to hospital bed for comfort
--- NOTE | 2021-06-23 05:00 | NUR ---
pt void in bedpan
[2021-06-23 05:25] LABS: BASOPHILS % (AUTO) 1 % (0-1); EOSINOPHILS % (AUTO) 0 % (1-7); LYMPHOCYTES % (AUTO) 9 % (22-44); MEAN CORPUSCULAR HEMOGLOBIN 28.7 pg (27.0-34.8); MEAN CORPUSCULAR HGB CONC 33.7 g/dL (32.4-35.8); MEAN PLATELET VOLUME 9.4 fL (7.4-10.4); MONOCYTES % (AUTO) 2 % (2-9); NEUTROPHILS % (AUTO) 88 % (42-75); PLATELET COUNT 287 x10^3/uL (130-400); RED BLOOD COUNT 5.04 x10^6/uL (3.82-5.3); RED CELL DISTRIBUTION WIDTH 13.7 % (9.6-15.2)
[2021-06-23 05:36] LABS: CHOL/HDL RATIO 4.4; LDL/HDL RATIO 2.9 (0.5-3.0)
--- NOTE | 2021-06-23 06:55 | NUR ---
assumed care of pt. report from Edwina ALICEA pt here for intracranial bleed onset last nocs. per report, pt has hx of HTN but is non-complaint with meds. pt also non-compliant with DM medications and has recent use of meth about 1 month ago pt resting on hospital bed, admit hold awaiting bed assignment to CCU. pt is currently restless and repeatedly has to be reminded to re-position arm to allow for IV infusion. no critical gtts running at this time. pt denies HOFF. CH[place] without difficulty. no facial droop noted. pt at bedside. pt and updated on POC
--- NOTE | 2021-06-23 07:07 | NUR ---
pt sister: Cate [phone]
--- NOTE | 2021-06-23 07:15 | NUR ---
pt has been reminded mulitple times to allow for positioning of arm to enable IV infusion.
--- NOTE | 2021-06-23 07:54 | NUR ---
pt has been medicated per order Rx requested from pharmacy
--- NOTE | 2021-06-23 08:11 | NUR ---
pt B/P improving after medication administration pt positioning for comfort awaiting medication from pharmacy
--- NOTE | 2021-06-23 08:50 | NUR ---
pt resting, awaiting bed assignment awaiting insulin pen delivery from pharmacy report to Kristina ALICEA
--- NOTE | 2021-06-23 08:59 | NUR ---
REPORT FROM RASHAWN, ASSUME CARE OF PT AT THIS TIME. PT ASSISTED ONTO BEDPAN. VSS/UPDATED IN COMPUTER. CALL LIGHT WITHIN REACH.
[2021-06-23] MEDS: SODIUM CHLORIDE FLUSH 10ML SYR IVF SCH ×2 (09:00→21:28)
[2021-06-23] MEDS ORDERED: LISINOPRIL 10 MG TABLET ONE (09:10)
[2021-06-23] MEDS: LISINOPRIL 10 MG TABLET PO SCH ×2 (09:21→21:28)
--- NOTE | 2021-06-23 09:29 | NUR ---
BED LINEN, CHUX, AND GOWN WET AFTER USING BEDPAN. ALL CHANGED AND PT ASSISTED IN REPOSITIONING. AM MEDS GIVEN PER EMAR. CALL TO PHARMACY INQUIRING ON NOVOLOG PEN.
[2021-06-23] MEDS: INSULIN LISPRO 100 UNITS/ML, PEN SQ-INSULIN SCH ×3 (10:44→16:45)
--- NOTE | 2021-06-23 10:47 | NUR ---
FS GLUCOSE 297. INSULIN GIVEN PER SLIDING SCALE, LYNN ALICEA VERIFIED DOSE. MEAL TRAY PROVIDED. POC REVIEWED AND PT UPDATED. CALL LIGHT WITHIN REACH.
--- NOTE | 2021-06-23 11:39 | NUR ---
BP 184/111. RECHECK IN 20 MINUTES PER EMAR BEFORE MEDICATING. REPEAT CT SCHEDULED FOR 1200. LUNCH TRAY ORDERED. CALL LIGHT WITHIN REACH, SPOUSE AT BS.
--- NOTE | 2021-06-23 12:09 | NUR ---
BP REMAINS HIGH, LABETOLOL 10 MG GIVEN IV PER EMAR. PT TO CT.
[2021-06-23] MEDS ORDERED: OXYcodone IR 5MG TABLET ONE (12:24)
--- NOTE | 2021-06-23 12:40 | NUR ---
FS 378. INSULIN GIVEN PER SLIDING SCALE. LUNCH TRAY PROVIDED. REVIEW OF NEW ORDERS. MED REQUEST TO PHARMACY SENT.
--- NOTE | 2021-06-23 12:50 | NUR ---
DR GASTELUM AT . DR UPDATED ON FS AND BP WITH MEDICATIONS GIVEN. CALL LIGHT WITHIN REACH.
[2021-06-23] MEDS: LEVETIRACETAM 500 MG in SODIUM CHLORIDE 0.9% 100 ML IV SCH (13:12)
--- NOTE | 2021-06-23 13:15 | NUR ---
KEPPRA AND NICARDIPINE INFUSING PER PANTOGRAPHER ORDER. PT SLEEPING, NAD. CONTINUE CLOSE MONITORING OF BP. SPOUSE AT BS.
--- NOTE | 2021-06-23 13:20 | NUR ---
PULSE OX READING 88-90% WHILE PT ASLEEP. OXYGEN PLACED AT 2LITERS VIA NC.
--- NOTE | 2021-06-23 13:40 | NUR ---
NICARDIPINE GTT INCREASED BY 5MG, RECHECK BP IN 15 MINUTES. PURWICK PLACED TO SUCTION.
--- NOTE | 2021-06-23 14:39 | NUR ---
PT SLEEPING, AROUSABLE TO VOICE. A/O X 3. VS UPDATED IN COMPUTER. NICARDIPINE GTT KEPT AT 1OMG/HR WITH SBP <140.
--- NOTE | 2021-06-23 15:57 | NUR ---
BLOOD PRESSURE REMAINS STABLE. PT SLEEPING INTERMITTENTLY. PAIN TO FEET/LEGS BETTER. SPOUSE AT BS. DINNER TRAY ORDERED. CALL LIGHT WITHIN REACH.
--- NOTE | 2021-06-23 16:25 | NUR ---
BED AND LINEN CHANGED, DIONNE COLLECTED SMALL AMOUNT OF URINE-REST TO BED. MED REQUEST TO PHARMACY FOR NICARDIPINE GTT.
[2021-06-23 16:46] LABS: MICROSCOPIC INDICATED
[2021-06-23 16:52] LABS: AMPHETAMINE SCREEN, URINE Positive (Negative); BARBITURATE SCREEN, URINE Negative (Negative); BENZODIAZEPINE SCREEN, URINE Negative (Negative); CANNABINOID SCREEN, URINE Negative (Negative); COCAINE SCREEN, URINE Negative (Negative); METHADONE SCREEN, URINE Negative (Negative); OPIATE SCREEN, URINE Negative (Negative)
[2021-06-23 18:22] VITALS: BP 111/69
[2021-06-23] MEDS ORDERED: ATORVASTATIN 80 MG TABLET PO SCH (21:00)
[2021-06-23] MEDS ORDERED: INSULIN GLARGINE 100 UNITS/ML, PEN SQ-INSULIN SCH (21:00)
[2021-06-24] MEDS: LEVETIRACETAM 500 MG in SODIUM CHLORIDE 0.9% 100 ML IV SCH ×3 (00:20→23:19)
[2021-06-24] MEDS: INSULIN LISPRO 100 UNITS/ML, PEN SQ-INSULIN SCH ×4 (06:14→22:23)
[2021-06-24] MEDS: LISINOPRIL 20 MG TABLET PO SCH ×2 (08:24→22:18)
[2021-06-24] MEDS: AMLODIPINE 5 MG TABLET PO SCH ×2 (08:24→22:19)
[2021-06-24] MEDS: SODIUM CHLORIDE FLUSH 10ML SYR IVF SCH ×2 (08:25→22:18)
[2021-06-24] MEDS: INSULIN GLARGINE 100 UNITS/ML, PEN SQ-INSULIN SCH ×2 (09:41→22:23)
[2021-06-24] MEDS ORDERED: LABETALOL 5MG/ML, 20ML IV PRN (13:00)
[2021-06-24 22:51] VITALS: BP 153/91
[2021-06-25] VITALS (8 sets, daily range): BP systolic 132–166; BP diastolic 87–99
[2021-06-25 07:57] LABS: BASOPHILS % (AUTO) 1 % (0-1); EOSINOPHILS % (AUTO) 2 % (1-7); LYMPHOCYTES % (AUTO) 22 % (22-44); MEAN PLATELET VOLUME 8.9 fL (7.4-10.4); MONOCYTES % (AUTO) 7 % (2-9); NEUTROPHILS % (AUTO) 68 % (42-75); PLATELET COUNT 291 x10^3/uL (130-400); RED BLOOD COUNT 4.82 x10^6/uL (3.82-5.3); RED CELL DISTRIBUTION WIDTH 13.7 % (9.6-15.2)
[2021-06-25 08:03] LABS: CHLORIDE 112 mmol/L (98-107)
[2021-06-25 08:04] LABS: ALBUMIN 2.7 g/dL (3.4-5.0); ANION GAP 8 mmol/L (5-15); CALCIUM 8.5 mg/dL (8.5-10.1)
[2021-06-25 08:08] LABS: ALANINE AMINOTRANSFERASE 40 U/L (12-78); ALKALINE PHOSPHATASE 110 U/L (45-117); BILIRUBIN,TOTAL 0.5 mg/dL (0.2-1.0); CREATININE 0.65 mg/dL (0.55-1.02); TOTAL PROTEIN 6.5 g/dL (6.4-8.2)
[2021-06-25] MEDS: INSULIN LISPRO 100 UNITS/ML, PEN SQ-INSULIN SCH ×4 (08:25→21:54)
[2021-06-25] MEDS: SODIUM CHLORIDE FLUSH 10ML SYR IVF SCH ×2 (08:26→21:54)
[2021-06-25] MEDS: INSULIN GLARGINE 100 UNITS/ML, PEN SQ-INSULIN SCH ×2 (08:27→21:53)
[2021-06-25] MEDS: AMLODIPINE 5 MG TABLET PO SCH ×2 (08:28→21:52)
[2021-06-25] MEDS: LISINOPRIL 20 MG TABLET PO SCH ×2 (08:28→21:52)
[2021-06-25] MEDS ORDERED: ENALAPRILAT 1.25 MG/ML, 1ML ONE (12:00)
[2021-06-25] MEDS: ENALAPRILAT 1.25 MG/ML, 2ML IV PRN (12:12)
[2021-06-25] MEDS: LEVETIRACETAM 500 MG in SODIUM CHLORIDE 0.9% 100 ML IV SCH (12:27)
[2021-06-26] VITALS (9 sets, daily range): BP systolic 137–174; BP diastolic 86–115
[2021-06-26] MEDS: LEVETIRACETAM 500 MG in SODIUM CHLORIDE 0.9% 100 ML IV SCH ×2 (00:32→12:06)
[2021-06-26] MEDS: INSULIN LISPRO 100 UNITS/ML, PEN SQ-INSULIN SCH ×4 (07:00→20:47)
[2021-06-26] MEDS: INSULIN GLARGINE 100 UNITS/ML, PEN SQ-INSULIN SCH ×2 (08:16→20:45)
[2021-06-26] MEDS: AMLODIPINE 5 MG TABLET PO SCH ×2 (08:16→20:43)
[2021-06-26] MEDS: LISINOPRIL 20 MG TABLET PO SCH ×2 (08:16→20:44)
[2021-06-26] MEDS: SODIUM CHLORIDE FLUSH 10ML SYR IVF SCH ×2 (09:00→20:42)
[2021-06-26] MEDS ORDERED: LISI-170 PO ×2 (10:25)
[2021-06-26] MEDS ORDERED: LEVE500T53 PO (10:25)
[2021-06-26] MEDS ORDERED: INSU100I13 SQ-INSULIN (10:25)
[2021-06-26] MEDS ORDERED: HYDR-3342 PO ×2 (10:25)
[2021-06-26] MEDS ORDERED: AMLO-150 PO ×2 (10:25)
[2021-06-26] MEDS: ENALAPRILAT 1.25 MG/ML, 2ML IV PRN ×2 (15:18→17:35)
[2021-06-27] VITALS (8 sets, daily range): BP systolic 137–160; BP diastolic 87–112
[2021-06-27] MEDS: LEVETIRACETAM 500 MG in SODIUM CHLORIDE 0.9% 100 ML IV SCH ×2 (00:40→12:06)
[2021-06-27] MEDS ORDERED: ENALAPRILAT 1.25 MG/ML, 1ML ONE ×2 (02:31→13:36)
[2021-06-27] MEDS: ENALAPRILAT 1.25 MG/ML, 2ML IV PRN (02:40)
[2021-06-27 04:17] LABS: BASOPHILS % (AUTO) 1 % (0-1); EOSINOPHILS % (AUTO) 2 % (1-7); LYMPHOCYTES % (AUTO) 16 % (22-44); MEAN CORPUSCULAR HEMOGLOBIN 29.4 pg (27.0-34.8); MEAN CORPUSCULAR HGB CONC 34.5 g/dL (32.4-35.8); MEAN PLATELET VOLUME 9.2 fL (7.4-10.4); MONOCYTES % (AUTO) 6 % (2-9); NEUTROPHILS % (AUTO) 76 % (42-75); PLATELET COUNT 297 x10^3/uL (130-400)
[2021-06-27 04:38] LABS: ANION GAP 7 mmol/L (5-15); CALCIUM 8.6 mg/dL (8.5-10.1); CHLORIDE 110 mmol/L (98-107)
[2021-06-27 04:40] LABS: CREATININE 0.67 mg/dL (0.55-1.02)
[2021-06-27] MEDS ORDERED: metFORMIN 500 MG TABLET PO SCH (08:00)
[2021-06-27] MEDS: INSULIN LISPRO 100 UNITS/ML, PEN SQ-INSULIN SCH ×3 (08:32→16:01)
[2021-06-27] MEDS: INSULIN GLARGINE 100 UNITS/ML, PEN SQ-INSULIN SCH (08:32)
[2021-06-27] MEDS: AMLODIPINE 5 MG TABLET PO SCH (08:33)
[2021-06-27] MEDS: LISINOPRIL 20 MG TABLET PO SCH (08:33)
[2021-06-27] MEDS: SODIUM CHLORIDE FLUSH 10ML SYR IVF SCH (08:34)
[2021-06-27] MEDS ORDERED: HYDR-3343 PO (14:53)
[2021-06-27] MEDS ORDERED: LISI40TA9 PO (14:53)
[2021-06-27] MEDS ORDERED: AMLO-211 PO (14:53)
== END 2021-06-27 16:35 | disposition home health service (06) | DRG 65 ==
LOC: ED 02:38 → SUATTDRO 02:55 → EDIP 03:12 → CCU 17:58 → 4WST 06-24 22:39
PROVIDERS: ADMIT Internal Medicine; ATTEND Family Medicine
DX: I61.0 Nontraumatic intracerebral hemorrhage in hemisphere, subcortical (principal); Z68.41 Body mass index [BMI] 40.0-44.9, adult; I16.1 Hypertensive emergency; E46 Unspecified protein-calorie malnutrition; G81.91 Hemiplegia, unspecified affecting right dominant side; I10 Essential (primary) hypertension; E11.65 Type 2 diabetes mellitus with hyperglycemia; E66.01 Morbid (severe) obesity due to excess calories; F10.10 Alcohol abuse, uncomplicated; Z79.4 Long term (current) use of insulin; F15.90 Other stimulant use, unspecified, uncomplicated; Z79.899 Other long term (current) drug therapy; Z86.73 Personal history of transient ischemic attack (TIA), and cerebral infarction without residual deficits
CPT/HCPCS: 36415; 70450; 80048; 80053; 80061; 80307; 80320; 81001; 82962; 83036; 85025; 85610; 85730; 87081; 87086; 93005; 96374; G0378; J1100; J1953; G0480; J1815; J7030; J7050